=== PATIENT | female | born 1990 | race American Indian/Alaskan Native ===

== ENCOUNTER 2019-08-26 14:46 | Emergency (ER) | payer MEDICARE ==
[2019-08-26 15:00] VITALS: BP 133/87
--- NOTE | 2019-08-26 17:39 | Event Note ---
ED Screening Note Date of service: 08/26/19 Time: 17:39 ED Screening Note: Ms mercado presents to Ed stating that she is out of her lexapro x 2 weeks she states she is unable to see her psych dr till next month she denies SI/HI or any other symptoms She states that she feels like her anxiety is coming on This initial assessment/diagnostic orders/clinical plan/treatment(s) is/are subject to change based on patients health status, clinical progression and re- assessment by fellow clinical providers in the ED. Further treatment and workup at subsequent clinical providers discretion. Patient/guardian urged not to elope from the ED as their condition may be serious if not clinically assessed and managed. Initial orders include: Pt presents with a non-medical emergency Examination is normal, Vital sign are stable Pt given information for clinics to follow up with pcp for further treatment and evaluation Also discussed strict return precautions in detail with pt who verbalized understanding
== END 2019-08-26 18:24 | disposition left against medical advice (07) ==
LOC: ED 14:46
DX: F41.9 Anxiety disorder, unspecified (principal); Z00.8 Encounter for other general examination; Z76.0 Encounter for issue of repeat prescription